=== PATIENT | male | born 1960 | race African-American/Black ===

== ENCOUNTER 2020-06-16 11:05 | Outpatient (CLI) | payer MEDICAID, OTHER ==
--- NOTE | 2020-06-16 13:38 | CT ---
LDCT OF THE CHEST WITHOUT IV CONTRAST FOR LUNG CANCER SCREENIN06/16/20 HISTORY: 59-year-old male with tobacco abuse, current smoker of one pack per day for 30 years. No complaints. FINDINGS: There is a 3 mm solid nodule in the posterior segment of the right upper lobe. There are a few scatte red cysts in the lungs bilaterally. No pleural or pericardial effusions are seen. There is no evidence of aneurysmal dilatation of the thoracic aorta. No osteolytic or osteoblastic le sions are noted. IMPRESSION: LUNG RADS 2: Benign. RECOMMENDATION: Follow-up LDCT is recommended in 12 months. POS: JOH[facility]
== END 2020-06-16 11:06 | disposition home or self-care (01) ==
LOC: BICCT 11:05
PROVIDERS: ATTEND Family Medicine
DX: Z12.2 Encounter for screening for malignant neoplasm of respiratory organs (principal); F17.210 Nicotine dependence, cigarettes, uncomplicated
CPT/HCPCS: G0297